=== PATIENT | female | born 1990 | race Caucasian/White ===

== ENCOUNTER 2022-07-07 21:42 | Emergency (ER) | payer MEDICAID, OTHER ==
[~2022-07-07] VITALS: Ht 162.6 cm; Wt 91.0 kg
[2022-07-07] MEDS ORDERED: KETOROLAC 60MG/2ML VIAL IM STA (22:43)
[2022-07-08] MEDS ORDERED: CYCL5TAB PO (01:08)
[2022-07-08] MEDS ORDERED: NAPR-681 PO (01:08)
[2022-07-08 01:25] VITALS: BP 130/16
== END 2022-07-08 01:25 | disposition home or self-care (01) ==
LOC: ER 21:42
DX: S16.1XXA Strain of muscle, fascia and tendon at neck level, initial encounter (principal); M54.9 Dorsalgia, unspecified; V49.59XA Passenger injured in collision with other motor vehicles in traffic accident, initial encounter; Y93.89 Activity, other specified; Y92.488 Other paved roadways as the place of occurrence of the external cause
CPT/HCPCS: 71045; 72125; 81025; 96372; 99285; J1885; Z7610